=== PATIENT | female | born 1965 | race Caucasian/White ===

== ENCOUNTER 2019-06-19 17:53 | Inpatient (IN) | payer OTHER, MEDICAID ==
[~2019-06-19] VITALS: Ht 162.6 cm; Wt 56.8 kg
[2019-06-19 18:00] VITALS: BP_SYST 122
[2019-06-19] MEDS ORDERED: MORPHINE 4 MG/ML INJ. SYRINGE IVP ONE (19:15)
[2019-06-19 21:47] LABS: BILIRUBIN,URINE NEGATIVE (NEGATIVE); BLOOD, URINE NEGATIVE (NEGATIVE); COLOR,URINE YELLOW (YELLOW); GLUCOSE,URINE NEGATIVE (NEGATIVE); KETONES,URINE NEGATIVE (NEGATIVE); LEUKOCYTE ESTERASE ,URINE 3+ (NEGATIVE); NITRITE, URINE POSITIVE (NEGATIVE); PROTEIN URINE NEGATIVE (NEGATIVE); UROBILINOGEN,URINE 0.2 (0.2-1.0)
[2019-06-19 21:51] LABS: BASOPHILS % (AUTO) 0.6 % (0.0-2.0); EOSINOPHILS # (AUTO) 0.2 K/uL (0.0-0.4); EOSINOPHILS % (AUTO) 2.7 % (0.0-4.0); HEMATOCRIT 32.4 % (36-48); HEMOGLOBIN 11.1 g/dL (12.0-16.0); LYMPHOCYTES # (AUTO) 2.3 K/uL (1.0-5.5); LYMPHOCYTES % (AUTO) 28.8 % (20.5-51.5); MEAN CORPUSCULAR HEMOGLOBIN 30 pg (27-31); MEAN CORPUSCULAR HGB CONC 34 % (32-36); MEAN CORPUSCULAR VOLUME 88 fL (79.0-98.0); MONOCYTES # (AUTO) 0.4 K/uL (0.0-1.0); MONOCYTES % (AUTO) 5.4 % (1.7-9.3); NEUTROPHILS # (AUTO) 4.9 K/uL (1.8-7.7); NEUTROPHILS % (AUTO) 62.5 % (40.0-70.0); PLATELET COUNT (AUTO) 248 K/uL (130-430); RED BLOOD CELL COUNT(AUTO) 3.66 MIL/uL (4.2-6.2); RED CELL DISTRIBUTION WIDTH 12.7 % (9.0-15.0); WHITE BLOOD COUNT (AUTO) 7.8 K/uL (4.8-10.8)
[2019-06-19 21:51] LABS: CLARITY/URINE SLIGHTLY CLOUDY (CLEAR)
[2019-06-19 22:03] LABS: BACTERIA,URINE MODERATE /HPF (None Seen); MUCUS,URINE None Seen /LPF (None Seen); RBC,URINE NONE SEEN /HPF (0-3); WBC,URINE 20-50 /HPF (0-3)
[2019-06-19 22:05] LABS: ANION GAP 8 (5-15); CALCIUM 9.9 mg/dL (8.4-11.0); CHLORIDE 105 mmol/L (98-107); CREATININE 1.09 mg/dL (0.55-1.30); GLUCOSE 183 mg/dL (70-99); SODIUM SERUM 141 mmol/L (136-145); UREA NITROGEN, BLOOD 29 mg/dL (8-21)
[2019-06-19 22:08] LABS: BARBITURATE, URINE NEGATIVE (NEG <=200); BENZODIAZEPINE, URINE NEGATIVE (NEG <=150); CANNABINOID, URINE NEGATIVE (NEG <=50); COCAINE, URINE NEGATIVE (NEG <=150); METHAMPHETAMINES SCREEN,URINE NEGATIVE (NEG <=500); OPIATE, URINE NEGATIVE (NEG <=100); PHENCYCLIDINE SCREEN,URINE NEGATIVE (NEG <=25); UR TRICYCLIC ANTIDEPRESSANTS NEGATIVE (NEG <=300); URINE AMPHETAMINE NEGATIVE (NEG <=500); URINE METHADONE NEGATIVE (NEG <=200); URINE OXYCODONE SCREEN NEGATIVE (NEG <=100); URINE PROPOXYPHENE SCREEN NEGATIVE (NEG <=300)
[2019-06-19 22:11] LABS: ALANINE AMINOTRANSFERASE 44 U/L (12-78); ALBUMIN 4.2 g/dL (3.4-4.8); ASPARTATE AMINOTRANSFERASE 16 U/L (10-37); TOTAL BILIRUBIN 0.2 mg/dL (0.0-1.0)
[2019-06-19 22:12] LABS: GFR AFRICAN AMERICAN 68 mL/min (>90)
[2019-06-19 22:13] LABS: ACETAMINOPHEN < 1 ug/mL (1-30); ALCOHOL, BLOOD < 3 mg/dL (<10)
[2019-06-19 22:14] LABS: CHOLESTEROL 150 mg/dL (<200); HDL CHOLESTEROL 90 mg/dL (>55); TRIGLYCERIDES 110 mg/dL (30-150)
[2019-06-19 22:15] LABS: LDL CHOLESTEROL 50 mg/dL (<100)
[2019-06-19] MEDS ORDERED: NITROFURANTOIN MONOHYD/M-CRYST 100 MG CAPSULE PO ONE (22:45)
[2019-06-19] MEDS ORDERED: IBUPROFEN 600 MG TABLET PO ONE (22:45)
[2019-06-20] MEDS ORDERED: cefTRIAXone 1 GM IVPB PREMIX 50 ML IV ONE (07:00)
[2019-06-20] MEDS ORDERED: DOCUSATE SODIUM 100 MG/10 ML UDC PO PRN (10:00)
[2019-06-20] MEDS ORDERED: HYDROcodone/ACETAMIN 7.5-325 MG TAB PO PRN (10:00)
[2019-06-20] MEDS ORDERED: ONDANSETRON HCL 4 MG/2 ML VIAL IVP PRN (10:00)
[2019-06-20] MEDS ORDERED: cefTRIAXone 1 GM VIAL ONE (10:21)
[2019-06-20 10:32] LABS: PROTHROMBIN TIME 9.7 SECS (9.5-12.5)
[2019-06-20] MEDS ORDERED: NACL 0.9% 1,000 ML IV ONE (10:45)
[2019-06-20] MEDS ORDERED: KETOROLAC TROMETHAMINE 30 MG VIAL IVP ONE (10:45)
[2019-06-20 10:46] LABS: AMYLASE 63 U/L (0-100); FREE T4 (FREE THYROXINE) 0.9 ng/dl (0.8-1.5); LIPASE 147 U/L (73-393); PHOSPHORUS 4.8 mg/dL (2.7-4.5); THYROID STIMULATING HORMONE 2.87 uIu/mL (0.36-3.74)
[2019-06-20] MEDS: NACL 0.9% 1,000 ML IV SCH (11:10)
[2019-06-20] MEDS: PANTOPRAZOLE SODIUM 40 MG TAB PO SCH (12:19)
[2019-06-20] MEDS ORDERED: PANTOPRAZOLE SODIUM 40 MG TAB ONE (12:33)
[2019-06-20] MEDS ORDERED: NIFE-2 PO (15:35)
[2019-06-20] MEDS ORDERED: HYDR-4037 PO (15:35)
[2019-06-20] MEDS ORDERED: METF1000 PO (15:35)
[2019-06-20] MEDS ORDERED: OXYB5TAB11 PO (15:35)
[2019-06-20] MEDS ORDERED: LOSA50TA3 PO (15:35)
[2019-06-20] MEDS ORDERED: ARIP5TAB10 PO (15:35)
[2019-06-20] MEDS ORDERED: LIP40 PO (15:35)
[2019-06-20] MEDS ORDERED: CAT.1 PO (15:35)
[2019-06-20] MEDS ORDERED: VIS25 PO (15:35)
[2019-06-20] MEDS ORDERED: CELE100C PO (15:35)
[2019-06-20] MEDS ORDERED: INSU100I26 SQ (15:35)
[2019-06-20] MEDS ORDERED: INSU100V SQ (15:35)
[2019-06-20] MEDS ORDERED: BUPR300T55 PO (15:35)
[2019-06-20] MEDS ORDERED: IPRA3AMP9 INH (15:35)
[2019-06-20] MEDS ORDERED: D5W 1,000 ML IV PRN (15:38)
[2019-06-20] MEDS ORDERED: DEXTROSE 50% JECT 50 ML DISP.SYRIN IVP PRN (15:45)
[2019-06-20] MEDS ORDERED: GLUCOSE 15 GM GEL (in 37.5 GM TUBE) PO PRN (15:45)
[2019-06-20] MEDS ORDERED: IBUPROFEN 600 MG TABLET PO ONE (18:15)
[2019-06-20] MEDS ORDERED: INSULIN GLARGINE 100 UNITS/ML 10 ML VIAL SQ SCH (21:00)
[2019-06-20] MEDS ORDERED: OXYBUTYNIN CHLORIDE 5 MG TABLET ONE (21:58)
[2019-06-20] MEDS ORDERED: metFORMIN HCL 500 MG TABLET ONE (21:59)
[2019-06-20] MEDS ORDERED: ATORVASTATIN 20 MG TABLET ONE (21:59)
[2019-06-20] MEDS ORDERED: hydrALAZINE HCL 25 MG TABLET ONE (22:01)
[2019-06-20] MEDS: ATORVASTATIN 20 MG TABLET PO SCH (22:45)
[2019-06-20] MEDS: OXYBUTYNIN CHLORIDE 5 MG TABLET PO SCH (22:45)
[2019-06-20] MEDS: hydrALAZINE HCL 25 MG TABLET PO SCH (22:48)
[2019-06-20] MEDS: metFORMIN HCL 500 MG TABLET PO SCH (22:49)
[2019-06-20] MEDS ORDERED: INSULIN GLARGINE 100 UNITS/ML 10 ML VIAL ONE (23:25)
[2019-06-21] VITALS (7 sets, daily range): BP systolic 101–130
[2019-06-21] MEDS: NACL 0.9% 1,000 ML IV SCH ×2 (02:33→20:04)
[2019-06-21] MEDS: hydrALAZINE HCL 25 MG TABLET PO SCH ×3 (06:00→21:15)
[2019-06-21] MEDS: INSULIN LISPRO SLIDING SCALE 100 UNITS/ML VIAL (humaLOG) SUBCUT PRN ×2 (06:10→12:41)
[2019-06-21 09:12] LABS: BASOPHILS # (AUTO) 0.1 K/uL (0.0-0.2); BASOPHILS % (AUTO) 0.7 % (0.0-2.0); EOSINOPHILS # (AUTO) 0.3 K/uL (0.0-0.4); EOSINOPHILS % (AUTO) 4.3 % (0.0-4.0); HEMATOCRIT 29.2 % (36-48); HEMOGLOBIN 9.9 g/dL (12.0-16.0); LYMPHOCYTES # (AUTO) 2.1 K/uL (1.0-5.5); LYMPHOCYTES % (AUTO) 25.9 % (20.5-51.5); MEAN CORPUSCULAR HEMOGLOBIN 30 pg (27-31); MEAN CORPUSCULAR HGB CONC 34 % (32-36); MEAN CORPUSCULAR VOLUME 88 fL (79.0-98.0); MONOCYTES # (AUTO) 0.7 K/uL (0.0-1.0); MONOCYTES % (AUTO) 8.2 % (1.7-9.3); NEUTROPHILS # (AUTO) 4.9 K/uL (1.8-7.7); NEUTROPHILS % (AUTO) 60.9 % (40.0-70.0); PLATELET COUNT (AUTO) 238 K/uL (130-430); RED BLOOD CELL COUNT(AUTO) 3.32 MIL/uL (4.2-6.2); RED CELL DISTRIBUTION WIDTH 12.7 % (9.0-15.0)
[2019-06-21 09:28] LABS: CALCIUM 8.8 mg/dL (8.4-11.0); CREATININE 0.95 mg/dL (0.55-1.30); POTASSIUM 5.5 mmol/L (3.5-5.1)
[2019-06-21] MEDS: ARIPiprazole 5 MG TAB PO SCH (10:29)
[2019-06-21] MEDS: cefTRIAXone 1 GM in D5W 50 ML IV SCH (10:30)
[2019-06-21] MEDS: OXYBUTYNIN CHLORIDE 5 MG TABLET PO SCH ×2 (10:31→20:28)
[2019-06-21] MEDS: metFORMIN HCL 500 MG TABLET PO SCH ×2 (10:33→17:44)
[2019-06-21] MEDS: PANTOPRAZOLE SODIUM 40 MG TAB PO SCH (10:33)
[2019-06-21] MEDS: LOSARTAN POTASSIUM 50 MG TABLET (COZAAR) PO SCH (10:34)
[2019-06-21] MEDS: NIFEDIPINE 30 MG TAB.ER.24 PO SCH (10:35)
[2019-06-21] MEDS ORDERED: buPROPion HCL 150 MG XL TAB PO ONE (11:00)
[2019-06-21] MEDS: ATORVASTATIN 20 MG TABLET PO SCH (20:28)
[2019-06-21] MEDS: INSULIN GLARGINE 100 UNITS/ML 10 ML VIAL SQ SCH (21:00)
[2019-06-21] MEDS ORDERED: SODIUM POLYSTYRENE SULFONATE 15 GM/60 ML UDBTL PO ONE (22:00)
[2019-06-22] VITALS (7 sets, daily range): BP systolic 100–128
[2019-06-22] MEDS ORDERED: KETOROLAC TROMETHAMINE 15 MG VIAL IVP PRN (03:30)
[2019-06-22] MEDS: IBUPROFEN 600 MG TABLET PO PRN ×2 (03:50→17:37)
[2019-06-22] MEDS: hydrALAZINE HCL 25 MG TABLET PO SCH ×3 (05:12→22:00)
[2019-06-22] MEDS: NACL 0.9% 1,000 ML IV SCH ×2 (05:26→23:36)
[2019-06-22] MEDS: cefTRIAXone 1 GM in D5W 50 ML IV SCH (09:23)
[2019-06-22] MEDS: ARIPiprazole 5 MG TAB PO SCH (09:24)
[2019-06-22] MEDS: buPROPion HCL 150 MG XL TAB PO SCH (09:25)
[2019-06-22] MEDS: NIFEDIPINE 30 MG TAB.ER.24 PO SCH (09:27)
[2019-06-22] MEDS: metFORMIN HCL 500 MG TABLET PO SCH ×2 (09:28→17:40)
[2019-06-22] MEDS: OXYBUTYNIN CHLORIDE 5 MG TABLET PO SCH ×2 (09:29→23:37)
[2019-06-22] MEDS: LOSARTAN POTASSIUM 50 MG TABLET (COZAAR) PO SCH (09:29)
[2019-06-22] MEDS ORDERED: PANTOPRAZOLE SODIUM 40 MG TAB PO ONE (09:30)
[2019-06-22] MEDS: GENTAMICIN 80 mg/100 mL NS 100 ML IV SCH (17:37)
[2019-06-22] MEDS: ATORVASTATIN 20 MG TABLET PO SCH (23:37)
[2019-06-22] MEDS: INSULIN GLARGINE 100 UNITS/ML 10 ML VIAL SQ SCH (23:45)
[2019-06-22] MEDS: INSULIN LISPRO SLIDING SCALE 100 UNITS/ML VIAL (humaLOG) SUBCUT PRN (23:46)
[2019-06-23 00:24] LABS: BASOPHILS % (AUTO) 0.5 % (0.0-2.0); EOSINOPHILS # (AUTO) 0.3 K/uL (0.0-0.4); EOSINOPHILS % (AUTO) 3.7 % (0.0-4.0); HEMATOCRIT 26.6 % (36-48); LYMPHOCYTES # (AUTO) 2.3 K/uL (1.0-5.5); LYMPHOCYTES % (AUTO) 33.6 % (20.5-51.5); MEAN CORPUSCULAR HEMOGLOBIN 30 pg (27-31); MEAN CORPUSCULAR HGB CONC 34 % (32-36); MEAN CORPUSCULAR VOLUME 88 fL (79.0-98.0); MONOCYTES # (AUTO) 0.4 K/uL (0.0-1.0); MONOCYTES % (AUTO) 6.4 % (1.7-9.3); NEUTROPHILS # (AUTO) 3.8 K/uL (1.8-7.7); NEUTROPHILS % (AUTO) 55.8 % (40.0-70.0); PLATELET COUNT (AUTO) 202 K/uL (130-430); RED BLOOD CELL COUNT(AUTO) 3.01 MIL/uL (4.2-6.2); RED CELL DISTRIBUTION WIDTH 12.6 % (9.0-15.0); WHITE BLOOD COUNT (AUTO) 6.8 K/uL (4.8-10.8)
[2019-06-23 00:34] LABS: CALCIUM 8.4 mg/dL (8.4-11.0); CREATININE 0.96 mg/dL (0.55-1.30); POTASSIUM 4.1 mmol/L (3.5-5.1)
[2019-06-23] MEDS: GENTAMICIN 80 mg/100 mL NS 100 ML IV SCH (06:15)
[2019-06-23] MEDS: hydrALAZINE HCL 25 MG TABLET PO SCH ×3 (06:16→21:55)
[2019-06-23] MEDS: IBUPROFEN 600 MG TABLET PO PRN ×3 (06:17→20:45)
[2019-06-23 07:37] VITALS: BP_SYST 105
[2019-06-23 08:10] VITALS: BP_SYST 106
[2019-06-23] MEDS: NIFEDIPINE 30 MG TAB.ER.24 PO SCH (08:18)
[2019-06-23] MEDS: ARIPiprazole 5 MG TAB PO SCH (08:19)
[2019-06-23] MEDS: metFORMIN HCL 500 MG TABLET PO SCH ×2 (08:19→17:17)
[2019-06-23] MEDS: OXYBUTYNIN CHLORIDE 5 MG TABLET PO SCH ×2 (08:20→20:46)
[2019-06-23] MEDS: PANTOPRAZOLE SODIUM 40 MG TAB PO SCH (08:20)
[2019-06-23] MEDS: buPROPion HCL 150 MG XL TAB PO SCH (08:20)
[2019-06-23] MEDS: LOSARTAN POTASSIUM 50 MG TABLET (COZAAR) PO SCH (08:21)
[2019-06-23 11:29] VITALS: BP_SYST 109
[2019-06-23] MEDS ORDERED: PIPERACILLIN/TAZO 3.375/DEX-IS 50 ML IV SCH (12:00)
[2019-06-23] MEDS: ERTAPENEM SODIUM 0.5 GM in NS 50 ML IV SCH (14:29)
[2019-06-23 15:44] VITALS: BP_SYST 114
[2019-06-23] MEDS: NACL 0.9% 1,000 ML IV SCH (17:20)
[2019-06-23 20:24] VITALS: BP_SYST 128
[2019-06-23] MEDS: ATORVASTATIN 20 MG TABLET PO SCH (20:45)
[2019-06-23] MEDS: INSULIN GLARGINE 100 UNITS/ML 10 ML VIAL SQ SCH (21:00)
[2019-06-23 23:43] LABS: BASOPHILS % (AUTO) 0.5 % (0.0-2.0); EOSINOPHILS # (AUTO) 0.3 K/uL (0.0-0.4); EOSINOPHILS % (AUTO) 3.1 % (0.0-4.0); HEMATOCRIT 27.1 % (36-48); HEMOGLOBIN 9.3 g/dL (12.0-16.0); LYMPHOCYTES # (AUTO) 2.4 K/uL (1.0-5.5); LYMPHOCYTES % (AUTO) 26.2 % (20.5-51.5); MEAN CORPUSCULAR HEMOGLOBIN 30 pg (27-31); MEAN CORPUSCULAR HGB CONC 35 % (32-36); MEAN CORPUSCULAR VOLUME 88 fL (79.0-98.0); MONOCYTES # (AUTO) 0.5 K/uL (0.0-1.0); MONOCYTES % (AUTO) 5.4 % (1.7-9.3); NEUTROPHILS # (AUTO) 5.9 K/uL (1.8-7.7); NEUTROPHILS % (AUTO) 64.8 % (40.0-70.0); PLATELET COUNT (AUTO) 202 K/uL (130-430); RED BLOOD CELL COUNT(AUTO) 3.09 MIL/uL (4.2-6.2); RED CELL DISTRIBUTION WIDTH 12.4 % (9.0-15.0)
[2019-06-23 23:59] LABS: CALCIUM 8.8 mg/dL (8.4-11.0); CREATININE 1.12 mg/dL (0.55-1.30); POTASSIUM 4.8 mmol/L (3.5-5.1)
[2019-06-24 02:09] VITALS: BP_SYST 133
[2019-06-24] MEDS: IBUPROFEN 600 MG TABLET PO PRN ×3 (02:58→21:58)
[2019-06-24] MEDS: hydrALAZINE HCL 25 MG TABLET PO SCH ×3 (07:19→21:57)
[2019-06-24 08:35] VITALS: BP_SYST 130
[2019-06-24] MEDS: NIFEDIPINE 30 MG TAB.ER.24 PO SCH (08:37)
[2019-06-24] MEDS: metFORMIN HCL 500 MG TABLET PO SCH ×2 (08:37→18:02)
[2019-06-24] MEDS: buPROPion HCL 150 MG XL TAB PO SCH (08:37)
[2019-06-24] MEDS: PANTOPRAZOLE SODIUM 40 MG TAB PO SCH (08:37)
[2019-06-24] MEDS: ARIPiprazole 5 MG TAB PO SCH (08:37)
[2019-06-24] MEDS: OXYBUTYNIN CHLORIDE 5 MG TABLET PO SCH ×2 (08:37→20:42)
[2019-06-24] MEDS: LOSARTAN POTASSIUM 50 MG TABLET (COZAAR) PO SCH (08:37)
[2019-06-24] MEDS: NACL 0.9% 1,000 ML IV SCH (10:06)
[2019-06-24 11:54] VITALS: BP_SYST 113
[2019-06-24] MEDS: ERTAPENEM SODIUM 0.5 GM in NS 50 ML IV SCH (14:15)
[2019-06-24 16:02] VITALS: BP_SYST 124
[2019-06-24 20:34] VITALS: BP_SYST 121
[2019-06-24] MEDS: ATORVASTATIN 20 MG TABLET PO SCH (20:42)
[2019-06-24] MEDS: INSULIN GLARGINE 100 UNITS/ML 10 ML VIAL SQ SCH (20:46)
[2019-06-24 23:06] VITALS: BP_SYST 114
[2019-06-25 00:27] LABS: BASOPHILS % (AUTO) 0.6 % (0.0-2.0); EOSINOPHILS # (AUTO) 0.3 K/uL (0.0-0.4); EOSINOPHILS % (AUTO) 3.1 % (0.0-4.0); HEMATOCRIT 26.2 % (36-48); HEMOGLOBIN 8.9 g/dL (12.0-16.0); LYMPHOCYTES # (AUTO) 2.1 K/uL (1.0-5.5); LYMPHOCYTES % (AUTO) 23.6 % (20.5-51.5); MEAN CORPUSCULAR HEMOGLOBIN 30 pg (27-31); MEAN CORPUSCULAR HGB CONC 34 % (32-36); MEAN CORPUSCULAR VOLUME 88 fL (79.0-98.0); MONOCYTES # (AUTO) 0.5 K/uL (0.0-1.0); MONOCYTES % (AUTO) 5.6 % (1.7-9.3); NEUTROPHILS % (AUTO) 67.1 % (40.0-70.0); PLATELET COUNT (AUTO) 196 K/uL (130-430); RED BLOOD CELL COUNT(AUTO) 2.98 MIL/uL (4.2-6.2); RED CELL DISTRIBUTION WIDTH 12.6 % (9.0-15.0); WHITE BLOOD COUNT (AUTO) 8.9 K/uL (4.8-10.8)
[2019-06-25 01:00] LABS: CALCIUM 8.2 mg/dL (8.4-11.0); CREATININE 1.1 mg/dL (0.55-1.30); POTASSIUM 4.4 mmol/L (3.5-5.1)
[2019-06-25] MEDS: hydrALAZINE HCL 25 MG TABLET PO SCH ×3 (06:19→21:27)
[2019-06-25] MEDS: NACL 0.9% 1,000 ML IV SCH ×2 (06:20→14:54)
[2019-06-25] MEDS: metFORMIN HCL 500 MG TABLET PO SCH ×2 (08:00→18:12)
[2019-06-25 08:30] VITALS: BP_SYST 125
[2019-06-25] MEDS: buPROPion HCL 150 MG XL TAB PO SCH (08:34)
[2019-06-25] MEDS: PANTOPRAZOLE SODIUM 40 MG TAB PO SCH (08:34)
[2019-06-25] MEDS: ARIPiprazole 5 MG TAB PO SCH (08:34)
[2019-06-25] MEDS: OXYBUTYNIN CHLORIDE 5 MG TABLET PO SCH ×2 (08:35→21:26)
[2019-06-25] MEDS: NIFEDIPINE 30 MG TAB.ER.24 PO SCH (08:35)
[2019-06-25] MEDS: LOSARTAN POTASSIUM 50 MG TABLET (COZAAR) PO SCH (08:36)
[2019-06-25] MEDS: IBUPROFEN 600 MG TABLET PO PRN ×2 (08:56→18:09)
[2019-06-25] MEDS: ERTAPENEM SODIUM 0.5 GM in NS 50 ML IV SCH (14:46)
[2019-06-25 20:13] VITALS: BP_SYST 135
[2019-06-25] MEDS: ATORVASTATIN 20 MG TABLET PO SCH (21:26)
[2019-06-25] MEDS: INSULIN GLARGINE 100 UNITS/ML 10 ML VIAL SQ SCH (21:33)
[2019-06-26 00:23] VITALS: BP_SYST 103
[2019-06-26] MEDS: IBUPROFEN 600 MG TABLET PO PRN ×3 (04:56→21:19)
[2019-06-26] MEDS: hydrALAZINE HCL 25 MG TABLET PO SCH ×3 (06:32→15:07)
[2019-06-26] MEDS: metFORMIN HCL 500 MG TABLET PO SCH ×2 (08:27→08:28)
[2019-06-26] MEDS: ARIPiprazole 5 MG TAB PO SCH (08:35)
[2019-06-26] MEDS: LOSARTAN POTASSIUM 50 MG TABLET (COZAAR) PO SCH (08:35)
[2019-06-26] MEDS: PANTOPRAZOLE SODIUM 40 MG TAB PO SCH (08:35)
[2019-06-26] MEDS: OXYBUTYNIN CHLORIDE 5 MG TABLET PO SCH ×2 (08:35→21:07)
[2019-06-26] MEDS: buPROPion HCL 150 MG XL TAB PO SCH (08:36)
[2019-06-26] MEDS: NIFEDIPINE 30 MG TAB.ER.24 PO SCH (08:36)
[2019-06-26] MEDS: ERTAPENEM SODIUM 0.5 GM in NS 50 ML IV SCH (15:05)
[2019-06-26 16:06] VITALS: BP_SYST 120
[2019-06-26] MEDS: NACL 0.9% 1,000 ML IV SCH (17:15)
[2019-06-26 20:00] VITALS: BP_SYST 128
[2019-06-26] MEDS: ATORVASTATIN 20 MG TABLET PO SCH (21:07)
[2019-06-26] MEDS: INSULIN LISPRO SLIDING SCALE 100 UNITS/ML VIAL (humaLOG) SUBCUT PRN (21:11)
[2019-06-26] MEDS: INSULIN GLARGINE 100 UNITS/ML 10 ML VIAL SQ SCH (21:12)
[2019-06-27 02:38] VITALS: BP_SYST 110
[2019-06-27] MEDS: hydrALAZINE HCL 25 MG TABLET PO SCH ×3 (05:58→21:16)
[2019-06-27] MEDS: IBUPROFEN 600 MG TABLET PO PRN ×2 (05:59→23:04)
[2019-06-27 08:31] VITALS: BP_SYST 127
[2019-06-27] MEDS: OXYBUTYNIN CHLORIDE 5 MG TABLET PO SCH ×2 (08:33→21:16)
[2019-06-27] MEDS: metFORMIN HCL 500 MG TABLET PO SCH ×2 (08:33→17:28)
[2019-06-27] MEDS: ARIPiprazole 5 MG TAB PO SCH (08:33)
[2019-06-27] MEDS: buPROPion HCL 150 MG XL TAB PO SCH (08:34)
[2019-06-27] MEDS: LOSARTAN POTASSIUM 50 MG TABLET (COZAAR) PO SCH (08:34)
[2019-06-27] MEDS: NIFEDIPINE 30 MG TAB.ER.24 PO SCH (08:34)
[2019-06-27] MEDS: PANTOPRAZOLE SODIUM 40 MG TAB PO SCH (08:34)
[2019-06-27] MEDS: NACL 0.9% 1,000 ML IV SCH (08:50)
[2019-06-27 12:28] VITALS: BP_SYST 128
[2019-06-27] MEDS: ERTAPENEM SODIUM 0.5 GM in NS 50 ML IV SCH (13:57)
[2019-06-27 16:35] VITALS: BP_SYST 121
[2019-06-27 20:00] VITALS: BP_SYST 128
[2019-06-27] MEDS: INSULIN GLARGINE 100 UNITS/ML 10 ML VIAL SQ SCH (21:00)
[2019-06-27] MEDS: ATORVASTATIN 20 MG TABLET PO SCH (21:15)
[2019-06-28 01:24] VITALS: BP_SYST 126
[2019-06-28] MEDS: NACL 0.9% 1,000 ML IV SCH ×2 (02:44→17:08)
[2019-06-28] MEDS: IBUPROFEN 600 MG TABLET PO PRN ×3 (06:13→21:16)
[2019-06-28] MEDS: hydrALAZINE HCL 25 MG TABLET PO SCH ×3 (06:14→21:30)
[2019-06-28 08:17] VITALS: BP_SYST 154
[2019-06-28] MEDS: ARIPiprazole 5 MG TAB PO SCH (08:19)
[2019-06-28] MEDS: metFORMIN HCL 500 MG TABLET PO SCH ×2 (08:19→17:05)
[2019-06-28] MEDS: LOSARTAN POTASSIUM 50 MG TABLET (COZAAR) PO SCH (08:19)
[2019-06-28] MEDS: OXYBUTYNIN CHLORIDE 5 MG TABLET PO SCH ×2 (08:19→21:16)
[2019-06-28] MEDS: NIFEDIPINE 30 MG TAB.ER.24 PO SCH (08:20)
[2019-06-28] MEDS: buPROPion HCL 150 MG XL TAB PO SCH (08:20)
[2019-06-28] MEDS: PANTOPRAZOLE SODIUM 40 MG TAB PO SCH (08:22)
[2019-06-28] MEDS: INSULIN LISPRO SLIDING SCALE 100 UNITS/ML VIAL (humaLOG) SUBCUT PRN (11:18)
[2019-06-28 12:01] VITALS: BP_SYST 133
[2019-06-28] MEDS: ERTAPENEM SODIUM 0.5 GM in NS 50 ML IV SCH (14:03)
[2019-06-28 16:56] VITALS: BP_SYST 118
[2019-06-28 20:00] VITALS: BP_SYST 130
[2019-06-28] MEDS: ATORVASTATIN 20 MG TABLET PO SCH (21:16)
[2019-06-28] MEDS: INSULIN GLARGINE 100 UNITS/ML 10 ML VIAL SQ SCH (21:29)
[2019-06-29 01:36] VITALS: BP_SYST 125
[2019-06-29] MEDS: IBUPROFEN 600 MG TABLET PO PRN ×2 (07:07→13:52)
[2019-06-29] MEDS: hydrALAZINE HCL 25 MG TABLET PO SCH ×2 (07:09→13:52)
[2019-06-29 08:00] VITALS: BP_SYST 142
[2019-06-29] MEDS: ARIPiprazole 5 MG TAB PO SCH (09:18)
[2019-06-29] MEDS: PANTOPRAZOLE SODIUM 40 MG TAB PO SCH (09:18)
[2019-06-29] MEDS: buPROPion HCL 150 MG XL TAB PO SCH (09:18)
[2019-06-29] MEDS: OXYBUTYNIN CHLORIDE 5 MG TABLET PO SCH (09:19)
[2019-06-29] MEDS: LOSARTAN POTASSIUM 50 MG TABLET (COZAAR) PO SCH (09:19)
[2019-06-29] MEDS: NIFEDIPINE 30 MG TAB.ER.24 PO SCH (09:20)
[2019-06-29] MEDS: metFORMIN HCL 500 MG TABLET PO SCH (09:21)
[2019-06-29] MEDS: NACL 0.9% 1,000 ML IV SCH (09:27)
[2019-06-29 11:07] VITALS: BP_SYST 126
[2019-06-29 12:00] VITALS: BP_SYST 133
[2019-06-29] MEDS: ERTAPENEM SODIUM 0.5 GM in NS 50 ML IV SCH (13:46)
[2019-06-29 16:00] VITALS: BP_SYST 138
== END 2019-06-29 16:05 | DRG 689 ==
LOC: SED 17:53 → SMU 06-20 06:53
PROVIDERS: ADMIT Family Medicine; ATTEND Family Medicine
DX: N39.0 Urinary tract infection, site not specified (principal); G93.41 Metabolic encephalopathy; R45.851 Suicidal ideations; Z16.24 Resistance to multiple antibiotics; F25.1 Schizoaffective disorder, depressive type; J44.9 Chronic obstructive pulmonary disease, unspecified; I10 Essential (primary) hypertension; F41.9 Anxiety disorder, unspecified; F32.9 Major depressive disorder, single episode, unspecified; G24.01 Drug induced subacute dyskinesia; B96.4 Proteus (mirabilis) (morganii) as the cause of diseases classified elsewhere; E86.0 Dehydration; E11.9 Type 2 diabetes mellitus without complications; Z88.8 Allergy status to other drugs, medicaments and biological substances; E87.5 Hyperkalemia; Z78.9 Other specified health status; Z98.2 Presence of cerebrospinal fluid drainage device; Z79.899 Other long term (current) drug therapy; Z88.1 Allergy status to other antibiotic agents; Z91.018 Allergy to other foods; Z88.7 Allergy status to serum and vaccine
CPT/HCPCS: 36415; 70450-TC; 71045; 80048; 80053; 80061; 80307; 81000-TC; 82150-TC; 82962; 83036; 83605; 83690-TC; 83735-TC; 83880; 84100-TC; 84439; 84443-TC; 84484; 85025; 85610-TC; 85730-TC; 87040-TC; 87081; 87086; 87186-TC; 96365; 96372; 96375; 99285; G0480; G0481; G0482; J0696; J1335; J1580; J1815; J1885; J2543; J7030; J7060